=== PATIENT | male | born 1955 | race Caucasian/White ===

== ENCOUNTER 2017-03-16 23:39 | Emergency (ER) | payer MEDICARE, MEDICAID ==
[~2017-03-16] VITALS: Ht 180.3 cm; Wt 78.0 kg
[~2017-03-16 23:39] MED LIST: LORA-303 PO
[2017-03-17 00:01] VITALS: BP 158/92; PULSE 87; RESP 18; O2SAT 99
--- NOTE | 2017-03-17 00:02 | ED.REPORT ---
HPI-Head Prob / Injury Date of Service Mar 17, 2017 ED Provider: Antonio Torrez DO Pt is an otherwise healthy 61 year old male who presents to the ED complaining of left head pain after being attacked by an owl prior to arrival. He c/o associated scratches to the left side of his head. He denies LOC and any other symptoms. The pt denies taking blood thinners. Pt reports that he was walking [place] a [place] tree when an owl few down and scratched him on the left side of his head. He denies seeing the owl. Nursing Notes Stated Complaint: HEAD INJURY Chief Complaint: General Complaint Nursing Notes Reviewed: Yes Allergies: Coded Allergies: No Known Allergies (Unverified Allergy, Unknown, 03/22/15) Scheduled PRN Lorazepam (Ativan) 1 Mg Tablet 1 MG PO TID PRN PRN For Dizziness General Time Seen by Provider: 00:02 Chief Complaint Other (attacked by owl) Hx Obtained From: Patient Arrived By: Walk-in Onset Occurred: Just prior to arrival Symptom Duration: Since onset Location: : Temporal parietal L Quality: Painful Severity: Current: Moderate Severity: Maximum: Moderate Recent Healthcare: No recent doctor visit, No recent hospitalization Similar Sx Previous: No Past Medical History Past Medical History recently diagnosed hernia Anxiety Past Surgical History denies Family History non-contributory Smoking History Former Smoker Social History Alcohol Use: Denies alcohol use Drug Use: Denies drug use Ambulatory Status Independent Review of Systems + head laceration + head pain Constitutional: Denies: Fever Neurologic: Denies: Change LOC, Syncope Complete sys rev & neg: except as marked. Physical Exam Initial Vital Signs Vital Signs (First) Date Time Temp Pulse Resp B/P Pulse Ox O2 Delivery O2 Flow Rate FiO2 03/17/17 00:01 36.8 87 18 158/92 99 Room Air Initial VS: Reviewed Respiratory: Breath sounds normal, Clear to auscultation, No respiratory distress Cardiovascular: Regular rate & rhythm, Heart sounds normal, Intact distal pulses Abdomen / GI: Soft, Non-tender Extremities: Vascular intact, Neuro intact Skin: Warm, Dry, No cyanosis Psychiatric: Mood/affect normal, Behavior normal General/Constitutional: Awake, Alert Head/eyes: Scratches and abrasions ENT: Atraumatic, Airway patent Neck: Atraumatic, Full range of motion Neurologic: Oriented X3, Speech NL, CN II - XII intact Re-Eval/Medical Decision Source of Hx: Old records Re-Evaluation/Progress : Time of Eval: 00:16 Re-Evaluation/Progress Note: Pt rechecked. No LOC that is not consistent with traumatic brain injury. Owl scratch is not consistent with rabies. Tetanus updated. Informed pt of plan for discharge. Pt understands and agrees with plan for discharge. F/U instructions and RTER warnings given. All questions addressed. Counseled Regarding: Diagnosis, Need for follow-up, When/why to return to ED Discharge & Departure Primary Impression: Animal scratch Disposition: Home All VS Reviewed: Yes Condition: Stable Patient Instructions: Animal Bite (ED) Additional Instructions: Keep the antibacterial ointment applied to the wound. Take Augmentin 2x daily for 5 days. Take Tylenol and Motrin for the pain. Watch for signs of infection. Call your primary care provider on Saturday for a follow up appointment next week. Return to the Emergency Department for any new or worrisome symptoms. Referrals: Deborah Oglesby MD (PCP) Scribe Attestation Portions of this note were transcribed by Anastasiia Mejia. I, Dr. Torrez personally performed the history, physical exam and medical decision-making; I reviewed and confirmed the accuracy of the information in the transcribed note. Signed by : Kitty Carlos, 03/16/17. copies to: Deborah Oglesby MD, Todd P DO Mar 17, 2017 00:02 Anastasiia Wolfe Mar 17, 2017 00:20
[2017-03-17] MEDS ORDERED: TdaP Vaccine 0.5 mL Inj IM ONE (00:10)
[2017-03-17] MEDS ORDERED: Amoxicillin-Clav 875-125 mg Tablet PO ONE (00:10)
== END 2017-03-17 00:40 | disposition home or self-care (01) ==
LOC: SED 23:39
DX: S00.81XA Abrasion of other part of head, initial encounter (principal); W61.92XA Struck by other birds, initial encounter; Y93.01 Activity, walking, marching and hiking; Y92.89 Other specified places as the place of occurrence of the external cause; Y99.8 Other external cause status; Z87.891 Personal history of nicotine dependence; Z23 Encounter for immunization